=== PATIENT | female | born 2000 | race Hispanic/Latino ===

== ENCOUNTER 2024-01-23 01:36 | Emergency (ER) | payer MEDICAID, SELFPAY ==
[2024-01-23] MEDS ORDERED: Ondansetron PF 4 MG/2 ML Vial ONE (01:42)
== END 2024-01-23 03:04 | disposition home or self-care (01) ==
LOC: CSHERS 01:36
DX: F10.129 Alcohol abuse with intoxication, unspecified (principal); Y90.6 Blood alcohol level of 120-199 mg/100 ml
CPT/HCPCS: 36415; 80307; 83880; 96374; J2405